=== PATIENT | male | born 1970 | race Asian ===

== ENCOUNTER 2016-06-25 04:29 | Emergency (ER) | payer OTHER ==
[~2016-06-25] VITALS: Ht 175.3 cm; Wt 129.6 kg
[~2016-06-25 04:29] MED LIST: ALBU8HFA IH; APIX5TAB PO; ASPI-1061 PO; ATOR20TA65 PO; DIGO125T PO; FURO-152 PO; GABA-531 PO; INSLAN SQ; INSU200I SQ; LISI-618 PO; METF500T4 PO; METO100T5 PO
[2016-06-25] MEDS ORDERED: GELATIN SPONGE,ABSORBABLE 50 MM TP ONE (04:45)
[2016-06-25 06:36] LABS: GLUCOSE,POINT OF CARE 87 MG/DL (70-110)
[2016-06-25] MEDS ORDERED: LIDOCAINE HCL BUFFERED 1% W/EPI 1:100,000 20 ML VIAL INJ ONE (06:45)
[2016-06-25 06:57] VITALS: BP 128/93
== END 2016-06-25 07:10 | disposition home or self-care (01) ==
LOC: EMS 04:31
DX: I83.92 Asymptomatic varicose veins of left lower extremity (principal); I48.91 Unspecified atrial fibrillation; I11.0 Hypertensive heart disease with heart failure; I50.9 Heart failure, unspecified; E11.9 Type 2 diabetes mellitus without complications; E78.00 Pure hypercholesterolemia, unspecified; Z79.82 Long term (current) use of aspirin; Z79.4 Long term (current) use of insulin
CPT/HCPCS: 35226; 82962; 99283; J3490

== ENCOUNTER 2017-03-03 01:02 | Inpatient (IN) | payer MEDICARE, OTHER ==
[~2017-03-03] VITALS: Ht 172.7 cm; Wt 146.5 kg
[~2017-03-03 01:02] MED LIST changes: -ASPI-1061 PO; +ASPI81TA33 PO; +METO100T14 PO; -METO100T5 PO
[2017-03-03] MEDS ORDERED: BUME1TAB17 PO (01:11)
[2017-03-03] MEDS ORDERED: CARV6 PO (01:11)
[2017-03-03 01:23] LABS: GLUCOSE,POINT OF CARE 150 MG/DL (70-110)
[2017-03-03] MEDS ORDERED: DIGOXIN 250 MCG/ML 2 ML AMP IVP ONE (02:00)
[2017-03-03 02:07] LABS: BASOPHILS # (AUTO) 0.04 K/uL (0.00-0.20); BASOPHILS % (AUTO) 0.6 % (0.0-2.0); EOSINOPHILS # (AUTO) 0.04 K/uL (0.00-0.70); EOSINOPHILS % (AUTO) 0.57 % (1.0-6.0); HEMOGLOBIN 14.5 g/dL (13.5-17.5); LYMPHOCYTES # (AUTO) 1.2 K/uL (1.0-4.8); LYMPHOCYTES % (AUTO) 15.8 % (22.0-44.0); MEAN CORPUSCULAR HEMOGLOBIN 25.1 pg (26.0-34.0); MEAN CORPUSCULAR HGB CONC 30.7 G/dL (31.0-37.0); MEAN CORPUSCULAR VOLUME 82 fL (80-100); MONOCYTES # (AUTO) 0.4 K/uL (0.1-1.0); MONOCYTES % (AUTO) 5.4 % (2.0-9.0); NEUTROPHILS # (AUTO) 5.8 K/uL (1.8-7.7); NEUTROPHILS % (AUTO) 77.7 % (40.0-70.0); PLATELET COUNT (AUTO) 226 K/uL (150-450); RED BLOOD CELL COUNT(AUTO) 5.75 MIL/uL (4.50-5.90); RED CELL DISTRIBUTION WIDTH 19.7 % (11.5-14.5); WHITE BLOOD COUNT (AUTO) 7.4 K/uL (4.5-11.0)
[2017-03-03 02:17] LABS: ANION GAP 12 mmol/L (8-16); CALCIUM, TOTAL 8.7 mg/dL (8.8-10.5); CARBON DIOXIDE 25 mmol/L (22-29); CHLORIDE 94 mmol/L (98-107); CREATININE 3.09 mg/dL (0.60-1.30); GLOMERULAR FILTR. RATE CALC 22 mL/min (>60); POTASSIUM 4.2 mmol/L (3.5-5.1); SODIUM SERUM 131 mmol/L (136-145); UREA NITROGEN, BLOOD 67 mg/dL (7-18)
[2017-03-03 02:19] LABS: PROTHROMBIN TIME 21.3 SEC (9.4-11.6)
[2017-03-03 02:37] LABS: B-TYPE NATRIURETIC PEPTIDE 1690 pg/mL (0-100)
[2017-03-03 02:41] LABS: ALANINE AMINOTRANSFERASE 21 U/L (12-78); ALBUMIN 2.7 g/dL (3.4-5.0); ASPARTATE AMINOTRANSFERASE 29 U/L (15-37); BILIRUBIN,TOTAL 5.7 mg/dL (0.1-1.0); CREATINE KINASE MB 2.6 ng/mL (0-5); CREATINE KINASE, TOTAL 210 U/L (39-308); TOTAL PROTEIN, SERUM 8.1 g/dL (6.4-8.2)
[2017-03-03] MEDS ORDERED: FUROSEMIDE 40 MG/4 ML VIAL IVP ONE (02:45)
[2017-03-03] MEDS ORDERED: AMIODARONE HCL 50 MG/ML 3 ML VIAL IVP ONE ×2 (03:15→04:00)
[2017-03-03] MEDS ORDERED: SODIUM CHLORIDE 0.9% 50 ML ONE (03:27)
[2017-03-03] MEDS ORDERED: AMIODARONE HCL 540 MG in DEXTROSE 5%-WATER 239.2 ML IV ONE ×2 (03:45→11:00)
[2017-03-03] MEDS ORDERED: AMIODARONE HCL 360 MG in DEXTROSE 5%-WATER 242.8 ML IV ONE (03:45)
[2017-03-03] MEDS ORDERED: DEXTROSE 5%-WATER 100 ML IV ONE (03:56)
[2017-03-03] MEDS ORDERED: HYDROCODONE/ACETAMINOPHEN 5-325 MG TABLET PO PRN ×2 (05:00)
[2017-03-03] MEDS ORDERED: ACETAMINOPHEN 325 MG TABLET PO PRN (05:00)
[2017-03-03] MEDS ORDERED: MORPHINE SULFATE 4 MG/ML SYRINGE IVP PRN (05:00)
[2017-03-03] MEDS ORDERED: ZOLPIDEM TARTRATE 5 MG TABLET PO PRN (05:00)
[2017-03-03] MEDS ORDERED: MAGNESIUM HYDROXIDE SUSPENSION 30 ML UDCUP PO PRN (05:00)
[2017-03-03 07:10] LABS: BASOPHILS % (AUTO) 0.6 % (0.0-2.0); EOSINOPHILS % (AUTO) 0.9 % (1.0-6.0); HEMATOCRIT 44.6 % (41-53); HEMOGLOBIN 14.3 g/dL (13.5-17.5); LYMPHOCYTES # (AUTO) 1.3 K/uL (1.0-4.8); LYMPHOCYTES % (AUTO) 13.4 % (22.0-44.0); MEAN CORPUSCULAR HGB CONC 32.1 G/dL (31.0-37.0); MEAN CORPUSCULAR VOLUME 81 fL (80-100); MONOCYTES # (AUTO) 0.9 K/uL (0.1-1.0); MONOCYTES % (AUTO) 8.9 % (2.0-9.0); NEUTROPHILS # (AUTO) 7.6 K/uL (1.8-7.7); NEUTROPHILS % (AUTO) 76.2 % (40.0-70.0); PLATELET COUNT (AUTO) 227 K/uL (150-450); RED BLOOD CELL COUNT(AUTO) 5.53 MIL/uL (4.50-5.90); RED CELL DISTRIBUTION WIDTH 19.9 % (11.5-14.5)
[2017-03-03 07:38] LABS: BILIRUBIN,TOTAL 6.4 mg/dL (0.1-1.0); CALCIUM, TOTAL 8.9 mg/dL (8.8-10.5); CREATININE 2.9 mg/dL (0.60-1.30); POTASSIUM 4.2 mmol/L (3.5-5.1); TOTAL PROTEIN, SERUM 8.3 g/dL (6.4-8.2)
[2017-03-03] MEDS ORDERED: MetFORMIN HCL 500 MG TABLET PO ONE (09:00)
[2017-03-03] MEDS ORDERED: FUROSEMIDE 20 MG/2 ML VIAL IVP SCH (09:00)
[2017-03-03] MEDS ORDERED: DOCUSATE SODIUM 100 MG CAPSULE PO SCH (09:00)
[2017-03-03] MEDS ORDERED: ASPIRIN 81 MG EC TABLET PO ONE (09:00)
[2017-03-03] MEDS ORDERED: LISINOPRIL 20 MG TABLET PO SCH (09:00)
[2017-03-03] MEDS ORDERED: ENOXAPARIN SODIUM 40 MG/0.4 ML PF SYRINGE SQ SCH (09:00)
[2017-03-03] MEDS ORDERED: CARVEDILOL 6.25 MG TABLET PO SCH (09:00)
[2017-03-03] MEDS ORDERED: NITROGLYCERIN 2% (1 GM=INCH) PACKET TP SCH (09:00)
[2017-03-03] MEDS ORDERED: PANTOPRAZOLE SODIUM 40 MG/VIAL IVP SCH (09:00)
[2017-03-03 11:01] LABS: RBC MORPHOLOGY COMMENT ABNORMAL RBC MORPH
[2017-03-03 12:00] VITALS: BP 139/98
[2017-03-03] MEDS ORDERED: DEXTROSE 50%-WATER 25 GM/50 ML SYRINGE IVP PRN (13:45)
[2017-03-03] MEDS: ISOSORB DINIT/HYDRALAZINE HCL 20-37.5 MG TABLET PO SCH ×2 (13:51→20:45)
[2017-03-03 14:42] LABS: GLUCOSE, URINE (UA) NEGATIVE (NEGATIVE); KETONES,URINE NEGATIVE (NEGATIVE); LEUKOCYTE ESTERASE ,URINE NEGATIVE (NEGATIVE); OCCULT BLOOD,URINE TRACE (NEGATIVE); PROTEIN,URINE NEGATIVE (NEGATIVE)
[2017-03-03 14:57] LABS: ADD UA MICROSCOPIC YES; APPEARANCE,URINE CLEAR (CLEAR); RBC,URINE 0-2 /HPF (0-2); WBC,URINE None Seen /HPF (0-5)
[2017-03-03 16:00] VITALS: BP 99/59
[2017-03-03] MEDS: INSULIN ASPART 100 UNITS/ML SQ PRN (16:56)
[2017-03-03 16:57] LABS: GLUCOSE COMMENT 1 Received Meds; GLUCOSE,POINT OF CARE 149 MG/DL (70-110)
[2017-03-03 17:58] VITALS: BP 99/42
[2017-03-03] MEDS: IPRATROPIUM BROMIDE 0.5 MG/2.5 ML NEB SOLUTION NEB SCH ×2 (19:45→23:21)
[2017-03-03] MEDS: ALBUTEROL SULFATE 2.5 MG/0.5 ML NEB SOLUTION NEB SCH ×2 (19:45→23:21)
[2017-03-03 20:06] VITALS: BP 96/58
[2017-03-03] MEDS: CARVEDILOL 12.5 MG TABLET PO SCH (20:46)
[2017-03-03] MEDS ORDERED: INSULIN GLARGINE,HUM.REC.ANLOG 100 UNITS/ML SQ SCH (21:00)
[2017-03-03] MEDS: APIXABAN 5 MG TABLET PO SCH (21:11)
[2017-03-03] MEDS ORDERED: ALBUTEROL SULFATE HFA 90 MCG/PUFF 8 GM INHALER IH PRN (22:45)
[2017-03-03] MEDS: GABAPENTIN 300 MG CAPSULE PO SCH (22:52)
[2017-03-03] MEDS: INSULIN DETEMIR 100 UNITS/ML SQ SCH (23:00)
[2017-03-04 00:11] VITALS: BP 130/59
[2017-03-04] MEDS: IPRATROPIUM BROMIDE 0.5 MG/2.5 ML NEB SOLUTION NEB SCH ×8 (03:00→22:42)
[2017-03-04] MEDS: ALBUTEROL SULFATE 2.5 MG/0.5 ML NEB SOLUTION NEB SCH ×8 (03:00→22:42)
[2017-03-04 04:44] VITALS: BP 118/57
[2017-03-04 06:20] LABS: BASOPHILS # (AUTO) 0.04 K/uL (0.00-0.20); BASOPHILS % (AUTO) 0.4 % (0.0-2.0); EOSINOPHILS # (AUTO) 0.06 K/uL (0.00-0.70); EOSINOPHILS % (AUTO) 0.63 % (1.0-6.0); HEMATOCRIT 42.6 % (41-53); HEMOGLOBIN 13.3 g/dL (13.5-17.5); LYMPHOCYTES # (AUTO) 0.6 K/uL (1.0-4.8); LYMPHOCYTES % (AUTO) 6.3 % (22.0-44.0); MEAN CORPUSCULAR HEMOGLOBIN 25.6 pg (26.0-34.0); MEAN CORPUSCULAR HGB CONC 31.3 G/dL (31.0-37.0); MEAN CORPUSCULAR VOLUME 82 fL (80-100); MONOCYTES # (AUTO) 0.7 K/uL (0.1-1.0); MONOCYTES % (AUTO) 7.1 % (2.0-9.0); NEUTROPHILS # (AUTO) 8.1 K/uL (1.8-7.7); PLATELET COUNT (AUTO) 191 K/uL (150-450); RED CELL DISTRIBUTION WIDTH 19.7 % (11.5-14.5); WHITE BLOOD COUNT (AUTO) 9.4 K/uL (4.5-11.0)
[2017-03-04] MEDS: INSULIN ASPART 100 UNITS/ML SQ PRN ×2 (06:23→11:48)
[2017-03-04 07:01] LABS: HEMOGLOBIN A1C 7.5 % (4.5-6.2)
[2017-03-04 07:07] LABS: NEUTROPHILS % (AUTO) 85.6 % (40.0-70.0)
[2017-03-04 07:13] LABS: ALBUMIN 2.5 g/dL (3.4-5.0); BILIRUBIN,TOTAL 5.3 mg/dL (0.1-1.0); CALCIUM, TOTAL 8.3 mg/dL (8.8-10.5); CHOL/HDL RATIO 7.1 (4.2-7.3); CREATININE 2.57 mg/dL (0.60-1.30); MAGNESIUM 2.3 mg/dL (1.80-2.40); POTASSIUM 3.9 mmol/L (3.5-5.1); TOTAL PROTEIN, SERUM 7.6 g/dL (6.4-8.2)
[2017-03-04 07:31] VITALS: BP 111/72
[2017-03-04] MEDS ORDERED: MetFORMIN HCL 500 MG TABLET PO SCH (08:00)
[2017-03-04] MEDS: GABAPENTIN 300 MG CAPSULE PO SCH ×3 (08:08→21:15)
[2017-03-04] MEDS: ATORVASTATIN CALCIUM 20 MG TABLET PO SCH (08:08)
[2017-03-04] MEDS: ISOSORB DINIT/HYDRALAZINE HCL 20-37.5 MG TABLET PO SCH ×2 (08:09→21:00)
[2017-03-04] MEDS: APIXABAN 5 MG TABLET PO SCH ×2 (08:09→21:15)
[2017-03-04] MEDS: ASPIRIN 81 MG EC TABLET PO SCH (08:09)
[2017-03-04 09:00] LABS: RBC MORPHOLOGY COMMENT ABNORMAL RBC MORPH
[2017-03-04] MEDS: CARVEDILOL 12.5 MG TABLET PO SCH ×2 (09:00→21:15)
[2017-03-04] MEDS ORDERED: BUMETANIDE 1 MG TABLET PO SCH (09:00)
[2017-03-04] MEDS: BUMETANIDE 0.25 MG/ML 4 ML VIAL IVP SCH ×2 (09:00→21:00)
[2017-03-04] MEDS ORDERED: LISINOPRIL 20 MG TABLET PO SCH (09:00)
[2017-03-04] MEDS ORDERED: DIGOXIN 125 MCG TABLET PO SCH (09:00)
[2017-03-04] MEDS: HYDROCODONE/ACETAMINOPHEN 5-325 MG TABLET PO PRN ×2 (10:26→16:30)
[2017-03-04 11:28] VITALS: BP 142/91
[2017-03-04 11:53] LABS: GLUCOSE,POINT OF CARE 167 MG/DL (70-110)
[2017-03-04 11:53] LABS: GLUCOSE,POINT OF CARE 133 MG/DL (70-110)
[2017-03-04 15:20] VITALS: BP 111/79
[2017-03-04 18:18] LABS: GLUCOSE COMMENT 1 Received Meds; GLUCOSE,POINT OF CARE 174 MG/DL (70-110)
[2017-03-04 19:18] VITALS: BP 124/76
[2017-03-04] MEDS: INSULIN DETEMIR 100 UNITS/ML SQ SCH (21:22)
[2017-03-05 00:03] VITALS: BP 110/78
[2017-03-05] MEDS: IPRATROPIUM BROMIDE 0.5 MG/2.5 ML NEB SOLUTION NEB SCH ×6 (02:54→22:35)
[2017-03-05] MEDS: ALBUTEROL SULFATE 2.5 MG/0.5 ML NEB SOLUTION NEB SCH ×6 (02:54→22:35)
[2017-03-05 04:32] VITALS: BP 104/58
[2017-03-05 05:49] LABS: BASOPHILS % (AUTO) 0.2 % (0.0-2.0); EOSINOPHILS % (AUTO) 0.9 % (1.0-6.0); HEMATOCRIT 41.6 % (41-53); HEMOGLOBIN 13.3 g/dL (13.5-17.5); LYMPHOCYTES # (AUTO) 0.5 K/uL (1.0-4.8); LYMPHOCYTES % (AUTO) 5.1 % (22.0-44.0); MEAN CORPUSCULAR VOLUME 81 fL (80-100); MONOCYTES # (AUTO) 0.6 K/uL (0.1-1.0); MONOCYTES % (AUTO) 6.2 % (2.0-9.0); NEUTROPHILS # (AUTO) 8.1 K/uL (1.8-7.7); PLATELET COUNT (AUTO) 183 K/uL (150-450); RED BLOOD CELL COUNT(AUTO) 5.12 MIL/uL (4.50-5.90); RED CELL DISTRIBUTION WIDTH 20.1 % (11.5-14.5); WHITE BLOOD COUNT (AUTO) 9.2 K/uL (4.5-11.0)
[2017-03-05 05:57] LABS: NEUTROPHILS % (AUTO) 87.6 % (40.0-70.0)
[2017-03-05 06:09] LABS: ALBUMIN 2.5 g/dL (3.4-5.0); CALCIUM, TOTAL 8.2 mg/dL (8.8-10.5); CREATININE 1.97 mg/dL (0.60-1.30); POTASSIUM 3.9 mmol/L (3.5-5.1); TOTAL PROTEIN, SERUM 7.6 g/dL (6.4-8.2)
[2017-03-05 07:26] VITALS: BP 139/72
[2017-03-05] MEDS: HYDROCODONE/ACETAMINOPHEN 5-325 MG TABLET PO PRN ×2 (08:15→20:33)
[2017-03-05] MEDS: GABAPENTIN 300 MG CAPSULE PO SCH ×3 (08:15→20:32)
[2017-03-05] MEDS: ASPIRIN 81 MG EC TABLET PO SCH (08:15)
[2017-03-05] MEDS: ATORVASTATIN CALCIUM 20 MG TABLET PO SCH (08:15)
[2017-03-05] MEDS: CARVEDILOL 12.5 MG TABLET PO SCH ×2 (08:15→20:33)
[2017-03-05] MEDS: BUMETANIDE 0.25 MG/ML 4 ML VIAL IVP SCH ×2 (08:16→20:36)
[2017-03-05] MEDS: ISOSORB DINIT/HYDRALAZINE HCL 20-37.5 MG TABLET PO SCH ×2 (08:16→20:36)
[2017-03-05] MEDS: APIXABAN 5 MG TABLET PO SCH ×2 (08:16→20:32)
[2017-03-05 11:41] LABS: ABG A-A DIFF O2 12.2 mmHg (10-20.0); ABG BASE EXCESS 2.4 mmol/L (-2.0-3.0); ABG OXYHEMOGLOBIN 93.2 % (94.0-100.0); ABG PCO2 47 mmHg (35-45); ABG PH 7.387 (7.35-7.450); ALLEN TEST, BLOOD GAS Positive; TEMPERATURE, FAHRENHEIT, BG 98.6 FAHREN (96.0-98.6)
[2017-03-05 11:52] VITALS: BP 105/50
[2017-03-05] MEDS: INSULIN ASPART 100 UNITS/ML SQ PRN (12:21)
[2017-03-05 15:28] VITALS: BP 100/69
[2017-03-05 19:22] VITALS: BP 127/67
[2017-03-05] MEDS: INSULIN DETEMIR 100 UNITS/ML SQ SCH (20:37)
[2017-03-06 00:04] VITALS: BP 100/66
[2017-03-06] MEDS: IPRATROPIUM BROMIDE 0.5 MG/2.5 ML NEB SOLUTION NEB SCH ×4 (03:56→14:46)
[2017-03-06] MEDS: ALBUTEROL SULFATE 2.5 MG/0.5 ML NEB SOLUTION NEB SCH ×4 (03:56→14:46)
[2017-03-06 04:41] VITALS: BP 117/63
[2017-03-06 06:22] LABS: BASOPHILS % (AUTO) 0.1 % (0.0-2.0); EOSINOPHILS % (AUTO) 0.6 % (1.0-6.0); HEMATOCRIT 41.5 % (41-53); HEMOGLOBIN 13.3 g/dL (13.5-17.5); LYMPHOCYTES # (AUTO) 0.6 K/uL (1.0-4.8); LYMPHOCYTES % (AUTO) 6.5 % (22.0-44.0); MEAN CORPUSCULAR HEMOGLOBIN 26.1 pg (26.0-34.0); MEAN CORPUSCULAR VOLUME 81 fL (80-100); MONOCYTES # (AUTO) 0.6 K/uL (0.1-1.0); MONOCYTES % (AUTO) 6.4 % (2.0-9.0); NEUTROPHILS # (AUTO) 7.5 K/uL (1.8-7.7); PLATELET COUNT (AUTO) 196 K/uL (150-450); WHITE BLOOD COUNT (AUTO) 8.7 K/uL (4.5-11.0)
[2017-03-06] MEDS: HYDROCODONE/ACETAMINOPHEN 5-325 MG TABLET PO PRN ×2 (06:59→10:50)
[2017-03-06 07:06] LABS: NEUTROPHILS % (AUTO) 86.4 % (40.0-70.0)
[2017-03-06 07:14] LABS: ALBUMIN 2.4 g/dL (3.4-5.0); BILIRUBIN,TOTAL 3.8 mg/dL (0.1-1.0); CALCIUM, TOTAL 8.3 mg/dL (8.8-10.5); CREATININE 1.57 mg/dL (0.60-1.30); MAGNESIUM 1.9 mg/dL (1.80-2.40); POTASSIUM 4.5 mmol/L (3.5-5.1); TOTAL PROTEIN, SERUM 7.8 g/dL (6.4-8.2)
[2017-03-06 07:48] VITALS: BP 101/52
[2017-03-06 08:30] LABS: RBC MORPHOLOGY COMMENT ABNORMAL RBC MORPH
[2017-03-06] MEDS: BUMETANIDE 0.25 MG/ML 4 ML VIAL IVP SCH (09:00)
[2017-03-06] MEDS: CARVEDILOL 12.5 MG TABLET PO SCH (09:00)
[2017-03-06 09:02] VITALS: BP 96/64
[2017-03-06] MEDS: ASPIRIN 81 MG EC TABLET PO SCH (09:04)
[2017-03-06] MEDS: GABAPENTIN 300 MG CAPSULE PO SCH (09:04)
[2017-03-06] MEDS: ATORVASTATIN CALCIUM 20 MG TABLET PO SCH (09:04)
[2017-03-06] MEDS: APIXABAN 5 MG TABLET PO SCH (09:07)
[2017-03-06 11:53] LABS: GLUCOSE,POINT OF CARE 157 MG/DL (70-110)
[2017-03-06 11:53] LABS: GLUCOSE,POINT OF CARE 134 MG/DL (70-110)
[2017-03-06 11:53] LABS: GLUCOSE,POINT OF CARE 136 MG/DL (70-110)
[2017-03-06 12:07] VITALS: BP 127/83
[2017-03-06] MEDS: ISOSORB DINIT/HYDRALAZINE HCL 20-37.5 MG TABLET PO SCH (12:14)
[2017-03-06] MEDS: INSULIN ASPART 100 UNITS/ML SQ PRN (12:17)
[2017-03-06 16:04] VITALS: BP 143/56
[2017-03-06 18:03] LABS: GLUCOSE,POINT OF CARE 276 MG/DL (70-110)
[2017-03-06 18:03] LABS: GLUCOSE,POINT OF CARE 114 MG/DL (70-110)
[2017-03-07 18:03] LABS: GLUCOSE,POINT OF CARE 116 MG/DL (70-110)
[2017-03-08 23:59] LABS: GLUCOSE,POINT OF CARE 131 MG/DL (70-110)
[2017-03-08 23:59] LABS: GLUCOSE,POINT OF CARE 136 MG/DL (70-110)
== END 2017-03-06 17:00 | disposition home or self-care (01) | DRG 291 ==
LOC: EMS 01:03 → 5N 04:40 → ICU 04:40 → 5N 17:20 → 5S 03-04 17:30
PROVIDERS: ADMIT Family Medicine; ATTEND Family Medicine
DX: I13.0 Hypertensive heart and chronic kidney disease with heart failure and stage 1 through stage 4 chronic kidney disease, or unspecified chronic kidney disease (principal); I50.23 Acute on chronic systolic (congestive) heart failure; N17.0 Acute kidney failure with tubular necrosis; E11.22 Type 2 diabetes mellitus with diabetic chronic kidney disease; E11.40 Type 2 diabetes mellitus with diabetic neuropathy, unspecified; E44.0 Moderate protein-calorie malnutrition; I48.2 Chronic atrial fibrillation; Z68.42 Body mass index [BMI] 45.0-49.9, adult; I42.0 Dilated cardiomyopathy; F15.10 Other stimulant abuse, uncomplicated; E66.01 Morbid (severe) obesity due to excess calories; E78.00 Pure hypercholesterolemia, unspecified; G47.33 Obstructive sleep apnea (adult) (pediatric); I45.10 Unspecified right bundle-branch block; N18.3 Chronic kidney disease, stage 3 (moderate); Z79.4 Long term (current) use of insulin; Z91.19 Patient's noncompliance with other medical treatment and regimen; Z95.810 Presence of automatic (implantable) cardiac defibrillator
CPT/HCPCS: 70450; 71250; 80307; 82805; 82962; 83036; 83735; 84145; 87081; 93005; 93306; 93971; 94640; 96365; 96366; 96375; 96376; 97110; 97116; 97162; 99291; C9113; J0282; J1160; J1650; J1940; J3490; J7050; J7060